=== PATIENT | female | born 2000 | race Two or more races ===

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

== ENCOUNTER 2022-08-12 14:49 | Emergency (ER) | payer OTHER ==
[~2022-08-12] VITALS: Ht 165.1 cm; Wt 53.5 kg
== END 2022-08-12 17:05 | disposition home or self-care (01) ==
LOC: ER 14:49
DX: A60.00 Herpesviral infection of urogenital system, unspecified (principal)

== ENCOUNTER 2024-02-21 00:39 | Emergency (ER) | payer OTHER ==
[~2024-02-21] VITALS: Ht 160 cm; Wt 59.0 kg
[2024-02-21 04:02] LABS: HEMATOCRIT 36.7 % (36.0-45.00); HEMOGLOBIN 12.4 g/dL (12.0-15.00); MEAN CELL VOLUME 83.1 fL (80.00-100.00); MEAN CORPUSCULAR HGB CONC 33.8 g/dl (32.0-36.0); PLATELET COUNT 289 K/uL (150-450); RED BLOOD COUNT 4.42 M/uL (4.00-6.00); RED CELL DISTRIBUTION WIDTH 14.3 % (11.5-14.5)
[2024-02-21 04:50] LABS: CREATININE SERUM 0.81 mg/dL (0.55-1.02); GFR 86.87; POTASSIUM 3.81 mEq/L (3.5-5.1)
== END 2024-02-21 05:55 | disposition home or self-care (01) ==
LOC: ER 00:41
DX: O20.0 Threatened abortion (principal)

== ENCOUNTER → 2024-04-16 | Emergency (ER) | payer OTHER | END | disposition left against medical advice (07) | LOC: ER 22:56 | DX: Z53.21 Procedure and treatment not carried out due to patient leaving prior to being seen by health care provider (principal) ==